=== PATIENT | female | born 1995 | race African-American/Black ===

== ENCOUNTER 2019-11-15 13:29 | Emergency (ER) | payer OTHER ==
[~2019-11-15] VITALS: Ht 170.2 cm; Wt 64.0 kg
[2019-11-15 13:37] VITALS: BP 101/64; Ht 170.2 cm; Wt 64.0 kg
== END 2019-11-15 14:28 | disposition home or self-care (01) ==
LOC: ED 13:29
DX: M25.521 Pain in right elbow (principal)

== ENCOUNTER 2020-05-22 09:54 | Emergency (ER) | payer OTHER ==
[~2020-05-22] VITALS: Ht 170.2 cm; Wt 59.0 kg
[2020-05-22 10:06] VITALS: Ht 170.2 cm; Wt 59.0 kg
[2020-05-22 12:54] VITALS: BP 114/72
== END 2020-05-22 12:54 | disposition home or self-care (01) ==
LOC: ED 09:54
DX: J03.90 Acute tonsillitis, unspecified (principal)
CPT/HCPCS: J1100; J1885